=== PATIENT | male | born 1980 | race Caucasian/White ===

== ENCOUNTER 2017-12-24 17:58 | Emergency (ER) | payer OTHER, MEDICAID ==
[2017-12-24 18:30] VITALS: BP 176/99; PULSE 87; RESP 16; TEMP 98.7; O2SAT 97
--- NOTE | 2017-12-24 19:10 | RADRPT ---
EXAM DATE/TIME: 12/24/2017 18:54 [facility] COMPARISON: No previous studies available for comparison. INDICATIONS : Pain post lifting a car part. MEDICAL HISTORY : None. SURGICAL HISTORY : None. ENCOUNTER: Initial ACUITY: 1 day PAIN SCORE: 10/10 LOCATION: Left Upper arm. FINDINGS: Two view examination of the left humerus demonstrates no evidence of fracture or dislocation. Bony m ineralization is normal. The soft tissue structures are intact. CONCLUSION: Normal radiographic appearance of the left humerus. Ernesto Domingo MD on December 24, 2017 at 19:07 Board Certified Radiologist. This report was verified electronically.
--- NOTE | 2017-12-24 19:16 | RADRPT ---
EXAM DATE/TIME: 12/24/2017 19:00 [facility] COMPARISON: No previous studies available for comparison. INDICATIONS : Pain post lifting car part. MEDICAL HISTORY : None. SURGICAL HISTORY : None. ENCOUNTER: Initial ACUITY: 1 day PAIN SCORE: 10/10 LOCATION: Left Forearm. FINDINGS: Two view examination of the left forearm demonstrates no evidence of fracture or dislocation. Bony m ineralization is normal. The soft tissue structures are intact. CONCLUSION: No acute abnormality. Ernesto Domingo MD on December 24, 2017 at 19:13 Board Certified Radiologist. This report was verified electronically.
[2017-12-24] MEDS ORDERED: NORC5TAB PO (20:45)
[2017-12-24] MEDS ORDERED: IBUPROFEN 800 MG TAB PO ONE (20:45)
[2017-12-24] MEDS ORDERED: ACETAMINOPHEN/HYDROcodone 325 MG/10 MG TAB PO ONE (20:45)
--- NOTE | 2017-12-24 20:54 | PD ---
HPI Chief Complaint: Injury Time Seen by Provider: 20:33 Travel History International Travel<30 days: No Contact w/Intl Traveler<30days: No Traveled to known affect area: No History of Present Illness HPI 37-year-old right-hand dominant white male on vacation presents emergency department with complaints of left upper arm pain. He states that he was removing the door on his vehicle when outstretched left hand when he felt something pull and pop. He has had inability to flex his arm in his elbow. He is a and went to the NH this afternoon but was referred to the ER for evaluation. X-rays of the humerus and elbow were performed which were negative. The patient denies any numbness or tingling. He admits to weakness due to pain. Symptoms are moderate. There is some improvement of pain with holding his arm against his chest. Worsened by movement. PFSH Past Medical History Narrative Medical PTSD, arthritis Immunizations Current: Yes Tetanus Vaccination: < 5 Years Influenza Vaccination: No Past Surgical History Narrative Surgical Orthopedic Social History Alcohol Use: No Tobacco Use: No Substance Use: No Allergies-Medications (Allergen,Severity, Reaction): Coded Allergies: No Known Allergies (Unverified , 12/24/17) Reported Meds & Prescriptions Reported Meds & Active Scripts Active [place] (Hydrocodone-Acetaminophen) 5 Mg-325 Mg Tab 1 Tab PO Q6H PRN Review of Systems General / Constitutional: No: Fever Eyes: No: Visual changes HENT: No: Headaches Cardiovascular: No: Chest Pain or Discomfort Respiratory: No: Shortness of Breath Gastrointestinal: No: Abdominal Pain Genitourinary: No: Dysuria Musculoskeletal: Positive: Arthralgias, Limited ROM, Weakness, Pain Skin: No Rash Neurologic: No: Weakness Psychiatric: No: Depression Endocrine: No: Polydipsia Hematologic/Lymphatic: No: Easy Bruising Physical Exam Narrative GENERAL: This is a well-nourished, well-developed patient, in no apparent distress. SKIN: No rashes, ecchymoses or lesions. Warm and dry. HEAD: Atraumatic. Normocephalic. EYES: PERRL, EOMI, no discharge or injection. No scleral icterus. EARS: Clear NOSE: Nasal turbinates appear normal. THROAT: Mucosa pink and moist. Airway patent. NECK: Trachea midline. supple, moves head freely. LUNGS: Clear to auscultation. CV: Regular in rhythm. ABDOMEN: Soft nontender. EXT: No clubbing cyanosis examination of the left upper extremity reveals an deformity of the biceps. He has tenderness at the medial component of the elbow to the articulation of the biceps muscle. He has limited range of motion due to pain. He is able to supinate and pronate. He is unable to fully extend or fully flex. He has no pain in the shoulder, wrist, hand. There is no pain over the olecranon. He has intact median/ulnar/radial nerves. He has good distal pulses. Data Data Last Documented VS Vital Signs Date Time Temp Pulse Resp B/P (MAP) Pulse Ox O2 Delivery O2 Flow Rate FiO2 12/24/17 18:30 98.7 87 16 176/99 (124) 97 Orders Orders Humerus (Min 2vws) (12/24/17 ) Forearm (2vws) (12/24/17 ) Acetamin-Hydrocod 325-10 Mg ([place] 10-32 (12/24/17 20:45) Ibuprofen (Motrin) (12/24/17 20:45) MDM Medical Decision Making Medical Screen Exam Complete: Yes Emergency Medical Condition: Yes Medical Record Reviewed: Yes Interpretation(s) Last 24 hours Impressions Radius/Ulna X-Ray 12/24/17 0000 Signed Impressions: Service Date/Time: Sunday, December 24, 2017 19:00 - CONCLUSION: No acute abnormality. Ernesto Domingo MD Humerus X-Ray 12/24/17 0000 Signed Impressions: Service Date/Time: Sunday, December 24, 2017 18:54 - CONCLUSION: Normal radiographic appearance of the left humerus. Ernesto Domingo MD Differential Diagnosis MDM: High Differential diagnoses: Fracture, sprain, strain, dislocation, contusion, neurovascular injury Narrative Course X-rays are negative. Patient's exam and history is consistent with a biceps tear. Patient is advised to follow-up with orthopedics and have MRI of his arm to decide if this is a partial or complete tear. Patient verbally states understanding. Patient is given Lortab 10 mg p.o. and Motrin 800 mg p.o. He is placed in an arm sling and ice pack. left biceps tear Diagnosis Primary Impression: Left biceps tear Patient Instructions: General Instructions, Narcotic given in the ED Additional Instructions: Rest. Sling. Ice pack. 3 Advil every 6 hours. Lortab for severe pain. Follow-up with an orthopedist in the next few days for recheck. Consider early MRI for possible repair. Return to the ER if any problems. Med/Other Pt SpecificInfo: Prescription(s) given Scripts Hydrocodone-Acetaminophen ([place]) 5 Mg-325 Mg Tab 1 TAB PO Q6H Y for PAIN, #12 TAB 0 Refills Prov: Víctor Pearson MD 12/24/17 Disposition: 01 DISCHARGE HOME Condition: Stable Mauricio Arce Dec 24, 2017 20:54
== END 2017-12-24 21:06 | disposition home or self-care (01) ==
LOC: NEPD 17:58
DX: S46.212A Strain of muscle, fascia and tendon of other parts of biceps, left arm, initial encounter (principal); Y93.89 Activity, other specified; M19.90 Unspecified osteoarthritis, unspecified site; F43.10 Post-traumatic stress disorder, unspecified
CPT/HCPCS: 73060; 73090; 99283